=== PATIENT | female | born 1950 | race Caucasian/White ===

== ENCOUNTER 2019-02-15 13:14 | Emergency (ER) | payer MEDICARE, OTHER ==
[~2019-02-15] VITALS: Ht 165.1 cm; Wt 136.1 kg
[~2019-02-15 13:14] MED LIST: ABILIFY10 MG PO; AMBIEN10 MG PO; ASPIR 8181 MG PO; BUPRENORPHINE HC8 MG SL; CLONAZEPAM1 MG PO; DICLOFENAC SODI75 MG PO; LEVOTHYROXINE125 MCG PO; LEXAPRO20 MG PO; LIPITOR20 MG PO; METFORMIN HCL500 MG PO; NORCO 10-325 T1 EACH PO; NORVASC10 MG PO; OXYCONTIN20 MG PO; POTASSIUM CHLO10 MEQ PO; PYRIDIUM200 MG PO
--- OUTSIDE RECORDS SUMMARY | 2019-02-15 13:18 | XMS ---
PreManage Notification: TOR COTTER Security Logistics Intern Events No recent Security Events currently on file [facility] There are no care providers on record at this time. Kvng has no Care Guidelines for this patient. Kalyani VISIT COUNT (12 MO.) 1 CHITO Bell TOTAL 1 NOTE: Visits indicate total known visits. ED/C VISIT TRACKING (12 MO.) 02/15/2019 13:15 [facility]ITO Finch [place] TYPE: Emergency COMPLAINT: - HEEL PAIN, CANT WALK INPATIENT VISIT TRACKING (12 MO.) No inpatient visits to display in this time frame [id number]
[2019-02-15] MEDS ORDERED: LASIX40 MG PO (16:50)
[2019-02-15] MEDS ORDERED: K-TAB ER20 MEQ PO (16:50)
== END 2019-02-15 17:07 | disposition home or self-care (01) ==
LOC: ED 13:14
DX: M62.81 Muscle weakness (generalized) (principal); R60.0 Localized edema; I10 Essential (primary) hypertension; F32.9 Major depressive disorder, single episode, unspecified; F41.9 Anxiety disorder, unspecified; E03.9 Hypothyroidism, unspecified; Z87.891 Personal history of nicotine dependence; Z85.41 Personal history of malignant neoplasm of cervix uteri; Z88.0 Allergy status to penicillin; Z88.2 Allergy status to sulfonamides; Z88.5 Allergy status to narcotic agent; Z91.040 Latex allergy status; Z91.018 Allergy to other foods; Z88.8 Allergy status to other drugs, medicaments and biological substances; Z79.82 Long term (current) use of aspirin; Z79.899 Other long term (current) drug therapy
CPT/HCPCS: 36415; 80053; 84439; 84443; 85025; 99284

== ENCOUNTER 2019-04-03 09:44 | Inpatient (IN) | payer MEDICARE, OTHER ==
[~2019-04-03] VITALS: Ht 165.1 cm; Wt 112.8 kg
[~2019-04-03 09:44] MED LIST changes: +K-TAB ER20 MEQ PO; +LASIX40 MG PO
--- OUTSIDE RECORDS SUMMARY | 2019-04-03 09:48 | XMS ---
PreManage Notification: TOR COTTER Security Package Liner Events No recent Security Events currently on file CRITERIA MET - [facility] CARE PROVIDERS [facility] 02/15/2019-Current PHONE: [phone] Kvng has no Care Guidelines for this patient. Kalyani VISIT COUNT (12 MO.) 2 CHITO Bell TOTAL 2 NOTE: Visits indicate total known visits. ED/UCC VISIT TRACKING (12 MO.) 04/03/2019 09:45 [facility] [place] TYPE: Emergency COMPLAINT: - LEG NUMBNESS 02/15/2019 13:15 [facility]IT[facility] [place] TYPE: Emergency COMPLAINT: - HEEL PAIN, CANT WALK DIAGNOSES: - Allergy status to sulfonamides status - Anxiety disorder, unspecified - Essential (primary) hypertension - Allergy status to narcotic agent status - Allergy to other foods - Localized edema - Personal history of nicotine dependence - Major depressive disorder, single episode, unspecified - Latex allergy status - Hypothyroidism, unspecified - Allergy status to penicillin - Personal history of malignant neoplasm of cervix uteri - Muscle weakness (generalized) - intermodal dispatcher (current) use of aspirin - Allergy status to oth drug/meds/biol subst status - Other group home (current) drug therapy INPATIENT VISIT TRACKING (12 MO.) No inpatient visits to display in this time frame [id number]
[2019-04-03] MEDS ORDERED: ALDACTONE25 MG PO (10:02)
[2019-04-03] MEDS ORDERED: LASIX20 MG PO (10:02)
[2019-04-03] MEDS ORDERED: BUPRENORPHINE HC8 MG SL (10:02)
--- NOTE | 2019-04-03 13:15 | NUR ---
PT ARRIVED TO ROOM 110 ON ER GOURNEY AND WAS ASSISTED TO HOSPITAL BED WITH TWO PERSON TOTAL ASSIST WITH SLIDER TRANSFER SHEET. PRESSURE SORES TO COCCYX CLEANSED WITH NS AND PAT DRIED WITH FLUFF GUAZE AND FOAM DSGS APPLIED. PT TOLERATED WELL. PT ASSISTED TO POSITION OF COMFORT. POC DISCUSSED WITH PT AND FAMILY. ASSESSMENT COMPLETED AND AWAITING PHARMACY TO PROCESS NEW ORDERS PRIOR TO ADMINISTRATION. CALL LIGHT AND H2O IN REACH. NO FURTHER NEEDS OR CONCERNS VOICED.
--- NOTE | 2019-04-03 13:48 | NUR ---
CALL PLACED TO PHARMACY MEDS/FLUIDS UNAVAILABLE AT THIS TIME. SPOKE WITH CAMILO WHO INFORMED ME THAT ORDERS ARE CURRENTLY BEING PROCESSED BY PHARMACIST.
--- NOTE | 2019-04-03 14:20 | NUR ---
PT'S VOICED THAT HE WOULD LIKE TO DISCUSS POC WITH MD AND VOICED CONCERN STHAT PT HAD HEAD CT ORDERED WHEN SHE DID NOT HIT HER HEAD. PT'S REPORTS PT HAS HAD INCREASED CONFUSION AND FORGETFULNESS SINCE APRIL. DISCUSSED THESE CONCERNS/REQEUSTS WITH MD. HEAD CT ORDERED TO R/O TUMOR OR BRAIN BLEED AND MD UNABLE TO SEE PT'S FAMILY AT THIS TIME. POC DISCUSSED WITH PT AND HER AND RATIONAL FOR HEAD CT WAS DISCUSSED. .
--- NOTE | 2019-04-03 15:36 | NUR ---
Casas catheter placed maintaining sterile technique. 10 mls of normal saline used for balloon. Patient tolerated procedure well. 1000 mls of urine output initially.
--- NOTE | 2019-04-03 16:15 | NUR ---
PT RESTING SUPINE IN BED ALERT AND ORIENTED. CALL LIGHT AND FRESH H2O IN REACH. FAMILY AT BEDSIDE. NO NEEDS OR CONCERNS VOICED.
--- NOTE | 2019-04-03 17:25 | NUR ---
PT SITTING UP IN BED EATING DINNER WATCHING TV. PT ASSESSMENT COMPLETED. CALL LIGHT AND H2O IN REACH. NO NEEDS OR CONCERNS VOICED. PT APPEARS TO BE IN NO ACUTE DISTRESS. RR 16 EVEN AND UNLABORED ON RA.
--- NOTE | 2019-04-03 22:54 | NUR ---
PT ASSESSMENT COMPLETE. PT RATES PAIN 7/10 TO BUE AND R LEG. SCHEDULED PAIN MEDICATION ADMINISTERED. PT DENIES SOB OR NAUSEA. PT FORGETFUL DURING ASSESSMENT, ASKING SEVERAL TIMES ABOUT PAIN MEDCIATION ADMINISTRATION. REPEATING INFORMATION ABOUT HER SEVERAL TIMES. TELE IN PLACE, SR, HR 75. LYPHEDEMA PRESENT TO BLE'S, PT STATES THAT HER LEGS HAVE BEEN THIS WAY FOR A WHILE. SHE WAS SUPPOSED TO SEE HER PCP FOR LEG EDEMA ON THRUSDAY. CMS INTACT TO ALL EXTREMITIES. PT STATES SEVERAL TIMES THROUGHOUT ASSESSMENT, "I CANNOT SLEEP IN THE HOSPITAL". PT ASKS REAL ESTATE OFFICE MANAGER WHETHER SHE CAN HAVE AMBIEN. MEDCIATION EDUCATION ADMINISTERED. PT DENIES FURTHER NEEDS AT THIS TIME. CALL LIGHT WITHIN REACH. ROOM IN VIEW OF RN STATION.
--- NOTE | 2019-04-04 00:30 | NUR ---
PT RESTING IN BED WITH EYES CLOSED, WAKES WHEN IAIN ENTERS THE ROOM FOR IV PUMP ALARMING. PT STATES THAT SHE WILL PROBABLY STAY AWAKE A WHILE NOW BECAUSE THERE IS A MOVIE SHE WANTS TO WATCH ON TV. ICE WATER REFILLED. PT DENIES FURTHER NEEDS. CALL LIGHT IN REACH.
--- NOTE | 2019-04-04 02:47 | NUR ---
PT RESTING IN BED WITH EYES CLOSED. RESPIRATIONS EVEN AND UNALBORED. PT APPEARS TO BE SLEEPING. DOES NOT WAKE WHILE MECHANICAL SERVICE TECHNICIAN IN DOOR WAY. CALL LIGHT IN REACH.
--- NOTE | 2019-04-04 04:34 | NUR ---
PT ASSESSMENT COMPLETE. PT STATES THAT PAIN IS WELL CONTROLLED AT THIS TIME, RATES 1/10. PT DENIES SOB OR NAUSEA. ASSESSMENT UNCHANGED FROM PREVIOUS. UA SENT TO LAB. PT ENCOURAGED TO TAKE PO INTAKE. PT REPORTS THAT SHE DOES NOT LIKE TO DRINK WATER, REPORTS THAT SHE ONLY LIKES TO DRINK DIET COKE AND HOT TEA ON OCCASION. STATES THAT SHE LIMITS DIET COKE TO 1 PER DAY. EDUCATION REGARDING DEHYDRATION AND PO INTAKE PROVIDED. PT STATES UNDERSTANDING. DIET COLA PROVIDED. PT DENIES FURTHER NEEDS AT THIS TIME. CALL LIGHT IN REACH.
--- NOTE | 2019-04-04 05:01 | NUR ---
PT SLEPT WELL THIS SHIFT. TIMES OF FORGETFULNESS, A&O. TELE #7, SR. OLEA CATH DRAINING CLEAR YELLOW URINE, QS. ALLEVYN FOAM TO GLUTEAL FOLD. LYMPHEDEMA TO BLE'S. IVF INFUSING. 2PA WITH FWW. BUE PAIN, R LEG PAIN, WELL CONTROLLED WITH SCHEDULED NEBS.
--- NOTE | 2019-04-04 08:10 | NUR ---
BEDSIDE REPORT RECEIVED PT ALERT AND TALKATIVE. REFUSES UP TO CHAIR AT THIS TIME, BREAKFAST SERVED
--- NOTE | 2019-04-04 09:05 | NUR ---
SPOKE WITH PATIENT, HER AND HER BROTHER IN ROOM. PATIENT LIVES WITH IN HOUSE WITH 3 STEPS IN (NO STAIRS INSIDE). SHE SPENDS MOST OF HER TIME IN A RECLINER CHAIR. SHE SLEEPS THERE, ALSO. SHE HAS A WALKER. SHE IS ABLE TO DO SHORT DISTANCE ONLY. HER FIRST WISH IS TO GO HOME AT DISCHARGE. HER AND BROHTER BOTH DISAGREE WITH HER AND SPENT MUCH TIME DISCUSSING WHY SHE CANNOT GO HOME YET. THEY STATE THEY ARE UNABLE TO MOVE HER. STATES HE HAS A BAD BACK AND CAN'T HELP MOVE HER. THEY BOTH DID NOT KNOW SHE HAD SORE ON HER BOTTOM FROM SITTING IN THE CHAIR. DISCUSSED HOW SITTING AND FRICTION CAN CAUSE BREAKDOWN. DISCUSSED THAT SHE IS VERY WEAK AND DOCTOR RECOMMENDS HER TO GO TO NURSING HOME FACILITY SHE WILL MOST LIKELY NEED SEVERAL WEEKS TO MONTHS BEFORE SHE SHOULD RETURN HOME. AFTER SOME DISCUSSION ADN QUESTIONS ANSWERED, PATIENT AGREES TO DO THIS. THEY BOTH AGREE THAT THEY WANT HER TO STAY IN [place] SO CAN BE A PART OF HER DAILY PLAN THERE. DISCUSSED THAT [facility] IS ONLY OPTION IN [place]. DISCUSSED MEDICARE COVERAGE. ALL QUESTIONS ANSWERED. IT IS AGREED THAT I WILL SEND HER INFORMATION TO [facility] TODAY. WILL CONTINUE TO FOLLOW.
--- NOTE | 2019-04-04 11:09 | NUR ---
PATIENT JUST ABOUT TO WORK WITH SUSAN, PT. FAMILY IN ROOM. PATIENT STATES SHE DOESN'T LIKE THE FOOD HERE. ENCOURAGED HER TO TRY SOME OTHER THINGS ON THE MENU SINCE SHE WAS ADMITTED LAST NIGHT AND HAS ONLY HAD 2 MEALS SO FAR. ALSO MENTIONED TO HER THAT WE HAVE ENSURE FOR HER TO DRINK IF SHE DOES NOT WANT A MEAL. SHE IS ON A 2 GRAM SODIUM DIET. PT IN TO WORK WITH PATIENT. NOTED PATIENT HAS A BANANA ALLERGY. WILL CONTINUE TO MONITOR.
--- NOTE | 2019-04-04 11:14 | NUR ---
DR BENSON IN TO SEE PT, IS PRESENT. DR XIONG REPORTS PT WAITING FOR HER MORNING MEDS. REMINDED PT AND THEY WERE GIVEN AND SO WAS FLU SHOT, IV LASIX, PAPERWORK FOR FLU SHOT, ETC. BOTH APPEAR TO HAVE POOR SHORT TERM MEMORY. BETH WALKER MEETS WITH PT AND . VISITORS PRESENT X2 AT THIS TIME.
--- NOTE | 2019-04-04 11:27 | NUR ---
PT SIT TO STAND WITH PHYSICAL THERAPY, PT REPORTS RIGHT SHOULDER HURTING CREPITUS NOTED, NOTIFIED.
--- NOTE | 2019-04-04 11:28 | NUR ---
P/T IN TO WORK WITH PT SHE RETURNS TO BED AFTER THAT
--- NOTE | 2019-04-04 13:57 | NUR ---
PT WAS ABLE TO STAND FOR P/T BUT UNABLE TO TAKE ANY STEPS. CONTINUES IN THE ROOM, SEVERAL VISITORS HAVE BEEN IN AND OUT. PT RESTING IN BED EYES CLOSED AFTER COMPLETING NOON MEAL
--- NOTE | 2019-04-04 15:14 | NUR ---
PT REQUEST PAIN MEDICATIONS, DISCUSSED WITH , DUE TYLENOL NOT AVAILABLE UNITL 1600. MD SAID NO MOTRIN DUE TO EUNICE, DISCUSSED WITH PT SHE SAID SHE WILL BE OK UNTIL 1600. ALSO PT REQUEST A DIET SODA THIS WAS PROVIDED THEN PT CONSUMED 50ML BEFORE PRIMARY RN VERBALIZED SHE CAN NOT HAVE SODA DUE TO SODIUM RESTICTION. SODA REMOVED FROM ROOM. EDUCATION PROVIDED AND PT COMPLIANT.
--- NOTE | 2019-04-04 15:58 | NUR ---
PT IS REFERRED BY DR. DIAZ FOR WOUND CONSULT OF THE RIGHT AND LEFT BUTTOCK/GLUTEAL FOLD. PT HAS SEVERAL PRESSURE INJURIES, ALL A STAGE 2 WITH SOME DEEP TISSUE INJURY IN THE SURROUNDING AREA. PT REPORTS THAT SHE OBTAINED THESE INJURIES AFTER A FALL AT HOME. THE LEFT BUTTOCK HAS A SUPERIOR AND INFERIOR INJURY MEASURING 6.6CM X 1.2CM X 0.1CM AND 2.9CM X 2.4CM X 0.1CM. THE RIGHT BUTTOCK HAS SUPERIOR, MEDIAL, AND INFERIOR INJURIES MEASURING 1.1CM X 0.6CM X 0.1CM; 5CM X 2.4CM X 0.1CM; AND 4.7CM X 2.3CM X 0.1CM. THE BASES OF ALL PRESSURE INJURIES ARE PALE PINK/RED GRANULATING TISSUE. THE EDGES ARE INTACT, PROLIFERATIVE, NO UNDERMINDING OR TUNNELING NOTED. THERE IS A SMALL AMOUNT OF YELLOW, SEROSANGUINOUS EXUDATE. THERE IS NO SIGN OF INFECTION, THE AREA IS WARM TO THE TOUCH, BUT THE PT IS OBESE AND HER BODY IS PUTTING OFF HEAT. THE PERIWOUND WOUND SKIN HAS AREAS OF SUSPECTED DEEP TISSUE INJURY, BUT IS OTHERWISE RED/ERYTHEMATOUS AND INTACT. PT REPORTS PAIN 5 OR 6 OUT OF 10 PRIOR TO BEGINNING WITH CLEANSING THE AREA, REPORTING INCREASED PAIN WITH CLEANSING OF THE AREA. CARE PLAN: 1. CLEANSE WITH ROOM TEMP WATER AND GAUZE; PAT DRY 2. APPLY SKIN PREP TO PERIWOUND SKIN 3. USING A SACRAL FOAM DRESSING, APPLY MEDIHONEY TO THE FOAM AND APPLY TO PT'S SKIN 4. CHANGE EVERY 3 TO 4 DAYS OR PRN
[2019-04-04] MEDS ORDERED: NORVASC10 MG PO (16:05)
[2019-04-04] MEDS ORDERED: LEVOTHYROXINE175 MCG PO (16:06)
--- NOTE | 2019-04-04 17:30 | NUR ---
MED REC COMPLETE
--- NOTE | 2019-04-04 18:03 | NUR ---
PATIENRT IN BED, NEEDS NO OTHER ASSISTANCE
--- NOTE | 2019-04-04 18:09 | NUR ---
PT RESTING IN BED EATS MOST OF EVENING MEAL VISITS READILY WITH NO C/O PAIN OR NEEDS. CONTINUES TO ORDER DIET PEPSI, DISCUSSED SODIUM CONTENT WITH THIS PT AND REASON DOESN'T WANT HER DRINKING IT. REMINDER WRITTEN ON BOARD FOR HER SHE STATES SHE CAN'T REMEMBER.
--- NOTE | 2019-04-04 21:17 | NUR ---
PT ASSESSMENT COMPLETE. PT STATES THAT PAIN IS TOLERABLE, DENIES NAUSEA OR SOB AT THIS TIME. TELE # 7N IN PLACE, SR, HR 71. OLEA CATH DRAINING CLEAR YELLOW URINE. LYMPHEDEMA TO BLE'S. SOCKS REMOVED AND LEFT OFF PER PT'S REQUEST, SHE THINKS PERHAPS SOCKS HAVE MADE HER FEET SORE. IVF INFUSING WNL. PT'S STUFFED ANIMAL PLACED IN THE CLOSET PER HER REQUEST. PT STATES "I'M REALLY NOT A STUFFED ANIMAL PERSON". PT FORGETFUL DURING ASSESSMENT, FORGETS THAT E COMMERCE PROJECT MANAGER IS HER NURSE AFTER INTRODUCTIONS, AND STATES THAT SHE HAS NOT EATEN TODAY DESPITE HAVING EATEN 3 MEALS. PT LAUGHS, STATES "I FORGET SOMETIMES." PT DENIES FURTHER NEEDS AT THIS TIME. CALL LIGHT WITHIN REACH.
--- NOTE | 2019-04-04 23:11 | NUR ---
PT RESTING IN BED WITH EYES CLOSED. RESPIRATIONS EVEN AND UNLABORED. PT APPEARS TO BE SLEEPING. CALL LIGHT IN REACH. ROOM IN VIEW OF RN STATION.
--- NOTE | 2019-04-05 01:18 | NUR ---
PT RESTING IN BED WITH EYES CLOSED. RESPIRATIONS EVEN AND UNLABORED. PT APPEARS TO BE SLEEPING. CALL LIGHT IN REACH. ROOM IN VIEW OF RN STATION.
--- NOTE | 2019-04-05 03:25 | NUR ---
PT RESTING IN BED WITH EYES CLOSED. RESPIRATIONS EVEN AND UNLABORED. PT APPEARS TO BE SLEEPING, DOES NOT WAKE WHILE RESEARCH CLERK IN DOORWAY. CALL LIGHT IN REACH.
--- NOTE | 2019-04-05 05:15 | NUR ---
PT RESTING IN BED WITH EYES CLOSED. DOES NOT WAKE WHILE STRATEGIC MARKETING MANAGER IN DOORWAY. PT APPEARS TO BE SLEEPING. CALL LIGHT IN REACH. ROOM IN VIEW OF RN STATION.
--- NOTE | 2019-04-05 06:37 | NUR ---
PT ASSESSMENT COMPLETE. PT STATES THAT PAIN IS WELL CONTROLLED, DENIES NAUSEA OR SOB. PT FORGETFUL DURING ASSESSMENT, ASKS THE SAME QUESTIONS REGARDING MEDICATIONS REPEATEDLY. REPORT FROM WET MACHINE CUTTER THAT PT HAS LOW GRADE TEMP. IS ENCOURAGED. PT DEMONSTRATES APPROPRIATE IS USE X 15. OLEA CATH DRAINING CLEAR YELLOW URINE. ASSESSMENT OTHERWISE UNCHANGED. PT DENIES FURTHER NEEDS AT THIS TIME. CALL LIGHT IN REACH.
--- NOTE | 2019-04-05 07:10 | NUR ---
BEDSIDE HANDOFF REPORT RECEIVED FROM FILLER BLOCK INSERTER REMOVER RN. PT RESTING IN BED. IV FLUIDS INFUSING AT 100ML/HR. PT DENIES NEEDS AT THIS TIME.
--- NOTE | 2019-04-05 09:15 | NUR ---
PT RESTING IN BED, PT HAS NOT RECEIVED BREAKFAST, ASSISTED TO ORDER BREAKFAST. PT RATIN GPAIN MINIMAL 06/06, GIVEN SCHEDULED MEDICATIONS. PT ON ROOM AIR, LUNG SOUNDS CLEAR. BOWEL TONES ACTIVE, DENIES NAUSEA. IV FLUIDS INFUSING D5 1/2 NS +20 MEQ, KCL RIDER INFUSING. OLEA CATH DRAINING YELLOW URINE. PT WITH LYMPHEDEMA TO BLE, CMS INTACT. DISCUSSED PLAN OF CARE FOR THE DAY.
--- NOTE | 2019-04-05 10:20 | NUR ---
PATIENT SITTING UP IN BED. IN ROOM. VITAL SIGNS AND I&O DONE. ICE WATER GIVEN. CALL LIGHT WITHIN REACH. NO OTHER NEEDS AT THIS TIME
--- NOTE | 2019-04-05 11:02 | NUR ---
PT SALINE LOCKED FOR P.T.
--- NOTE | 2019-04-05 11:21 | NUR ---
PATIENT RESTING IN BED. PHYSICAL THERAPIST IN ROOM. PATIENT STANDS UP. PATIENT USES WALKER. THREE PERSON ASSISTING. LINENS CHANGED. PATIENT BACKS TO BED. GOWN CHANGED. CALL LIGHT WITHIN REACH. NO OTHER NEEDS AT THIS TIME
--- NOTE | 2019-04-05 11:50 | NUR ---
FAXED CLINICALS TO [facility] FOR POSSIBLE ADMISSION. FAX CONFIRMATION RECEIVED 04/05/19 1145AM.
--- NOTE | 2019-04-05 11:57 | NUR ---
IV FLUIDS RESUMED, KCL INFUSING. PT REPOSITIONED IN BED. PT ASKING FOR SALT FOR HER LUNCH, OFFERED MRS. AVERY BUT PT STATES SHE DOES NOT LIKE IT, UNABLE TO PROVIDE SALT DUE TO SODIUM RESTRICTION. PT UNDERSTANDS. PT DENIES OTHER NEEDS AT THIS TIME.
--- NOTE | 2019-04-05 13:48 | NUR ---
PT RESTING IN BED NO REPORT OF PAIN OR NAUSEA. SPOUSE AT BEDSIDE AT THIS TIME
--- NOTE | 2019-04-05 14:41 | NUR ---
PT ALERT, ORIENTED AND SUPPORTED BY HER AT . SHE WAS PLEASED THAT I CAME BY-INVITED ME TO SIT DOWN. PT BEGAN TO SHARE WITH ME WHAT BROUGHT HER TO [facility] [address] NOW AND HER FILLED IN WHAT PT COULD NOT REMEMBER. PT ADMITTED THAT SHE HAS HAD A SERIES OF SMALL STROKES THAT HAS LIMITED HER ABILITY TO REMEMBER SIMPLE THINGS. PT MENTIONED THAT SHE IS TO GO TO [facility]. ENCOURAGED HER TO VIEW IT A TOOL TO HELP HER ACCOMPLISH THE TASK OF RETURNING HOME. PT REQUESTED PRAYER, WILL FOLLOW NEEDED
--- NOTE | 2019-04-05 15:19 | NUR ---
In to speak with pt and her spouse. Pt states "They're sending me to a assisted". Spouse reminds pt she agreed yesterday and [facility] is 1 minute away from their home. Pt agrees to go but wants to go in a gown, told her this is fine. Asked if spouse can bring her coat, slippers, and stretch pants. He agrees. Awaiting confirmation from [facility] for room.
--- NOTE | 2019-04-05 16:13 | NUR ---
PT EYAL LIFTED TO SHOWER CHAIR, SHOWER COMPLETED. LOWER LEGS CLEANSED WITH SURGICAL SPONGE. PT EYAL LIFTED BACK TO BED. SKIN FOLDS ASSESSED, NIO ORDER FOR GROIN AND PANNUS. SKIN FOLDS BETWEEN TOES AND ON BLE CLEANSED WITH WOUND CLEANSER. SMALL OPEN WOUND TO RIGHT LATERAL CALF. SAT INSTRUCTOR TO BEDSIDE TO ASSESS BLE LYMPHEDEMA WOUNDS.
--- NOTE | 2019-04-05 16:30 | NUR ---
DURING REVIEW OF PT CHART IS WAS NOTED THAT PT HAD LATEX ALLERGY AND HAS RUBBER CATHETER IN PLACE, NO S/S OF LOCAL REACTION PRESENT. MD NOTIFIED, ORDERED TO REPLACE WITH LATEX FREE CATHETER.
--- NOTE | 2019-04-05 17:15 | NUR ---
Notified pt and spouse, [facility] does not have a bed open until . Understanding stated. Spouse brought in sweat pants, coat, and slippers for pt. Slippers a ex large and do not fit her feet. Suggested he split the top of the slippers. Heather from the wound care team working with pt.s dried skin on lower legs.
--- NOTE | 2019-04-05 17:44 | NUR ---
LE 1615: PT IS SEEN FOR EVALUATION OF ANKLE BRACHIAL INDEX TO SEE IF SHE IS A CANDIDATE FOR COMPRESSION THERAPY. THERE IS NO MEDICAL HX OF ARTERIAL DISEASE ACCORDING THE PT AND HER CHART. UPON COMPLETION OF THE ALEXIS THE RIGHT ALEXIS IS 1.3 AND THE LEFT IOS 1.46. WHILE THE RIGHT IS AT THE EXTREME NORMAL LIMIT IT IS NOT RECOMMENDED TO COMPRESS AT THIS TIME. THE LEFT IS NOT A CANDIDATE FOR COMPRESSION THERAPY SINCE THE RESULTS INDICATE PROBABLE ARTERIAL INSUFFICIENCY. THESE RESULS ARE DISCUSSED WITH GALLO ARGUELLO AND THE PT'S . THE PT IS EDUCATED TO KEEP HER LE ELEVATED AT LEAST 30 MINUTES EVERYDAY. CARE ORDERS FOR LE'S: 1. CLEANSE WITH WOUND CLEANSER OR WARM WATER 2. PAT DRY 3. APPLY MEDIHONEY TO ANY CRUSTED AREAS 4. APPLY BARRIER CREAM TO REMAING SKIN 5. GENTLY/LOOSELY APPLY ROLLED GAUZE OR CAST PADDING TO AFFECTED AREAS 6. VERY LOOSELY ROLL COBAN AROUND EXTREMITY TO HOLD THE ROLLED GAUZE OR CAST PADDING IN PLACE. 7. CHANGE Q3-4 DAYS OR PRN
--- NOTE | 2019-04-05 18:15 | NUR ---
OLEA CATH CHANGED TO LATEX FREE CATHETER. WOUND TO BUTTOCK DRESSED PER WOUND CARE ORDERS. PT SITTING IN BED EATING DINNER. PT DENIES OTHER NEEDS AT THIS TIME.
--- NOTE | 2019-04-05 20:00 | NUR ---
PATIENT RESTING WATCHING TVNO NEEDS AT THIS TIME. CALL LIGHT IN REACH.
--- NOTE | 2019-04-05 21:40 | NUR ---
PATIENT HAS HAD EVENING MEDS AND BEEN TURNED TO RIGHT SIDE. WATER GLASS FILLED. HAVING NO PAIN. LOW GRADE FEVER 99.5F SO TYLENOL GIVEN. PATIENT CONTINUES TO WATCH TV. NO OTHER NEEDS. CALL LIGHT IN REACH.
--- NOTE | 2019-04-05 23:51 | NUR ---
PATIENT RESTING QUIETLY, RESPIRATIONS REGULAR AND EVEN, CALL LIGHT IN REACH.
--- NOTE | 2019-04-06 01:01 | NUR ---
PATIENT RESTING QUIETLY SUPINE, RESPIRATIONS REGULAR AND EVEN, EYES CLOSED AND CALL LIGHT IN REACH.
--- NOTE | 2019-04-06 03:10 | NUR ---
PATIENT HAS BEEN RESTING QUIETLY, EYES CLOSED, RESPIRATIONS ARE REGULAR AND EVEN, CALL LIGHT IS IN REACH. PATIENT VISIBLE FROM NURSES STATION.
--- NOTE | 2019-04-06 05:22 | NUR ---
PATIENT RESTED WELL MOST OF THE NIGHT, NO C/O ANYTHING THROUGH THE NIGHT. PATIENT RESTED WELL MOST OF THE NIGHT EYES CLOSED RESPIRATIONS REGULAR AND EVEN AND CALL LIGHT IN REACH. IV INFUSING AND OLEA DRAINING WELL.
--- NOTE | 2019-04-06 06:55 | NUR ---
BEDSIDE HANDOFF REPORT RECEIVED FROM ACTIVATED SLUDGE ATTENDANT RN. PT SLEEPING, LEFT UNDISTURBED.
--- NOTE | 2019-04-06 08:08 | NUR ---
PATIENT RESTING IN BED. PATIENT'S HANDS AND FACE CLEANED. PATIENT TRANSFERRED TO THE CHAIR. PATIENT USES EYAL. THREE PERSON ASSISTING. LINENS CHANGED. SETS UP TABLE FOR BREAKFAST. ICE WATER GIVEN. TISSUES PROVIDED.CALL LIGHT WITHIN REACH. NO OTHER NEEDS AT THIS TIME
--- NOTE | 2019-04-06 08:15 | NUR ---
PT EYAL LIFTED TO CHIAR FOR BREAKFAST. PT DENIES OTHER NEEDS AT THIS TIME.
--- NOTE | 2019-04-06 09:15 | NUR ---
PT SITTING IN THE CHAIR, DONE WITH BREAKFAST. PT ON ROOM AIR, LUNG SOUNDS CLEAR. BOWEL TONES ACTIVE, DENIES NAUSEA. IV SALINE LOCKED PER ORDER, IV FLUSHED AND PATENT. PT RATING CHRONIC PAIN 2/10 AT THIS TIME, GIVEN SCHEDULED MEDICATIONS. PT WITH BLE DRESSINGS, CMS INTACT, PULSES PALPABLE. DISCUSSED PLAN OF CARE FOR THE DAY. PT VOICING ANXIETY ABOUT GOING TO SNF TOMORROW, DISCUSSED WITH PT AND SPOUSE.
--- NOTE | 2019-04-06 10:04 | NUR ---
PATIENT SITTING UP IN CHAIR. IN ROOM. VITAL SIGNS AND I&O DONE. CALL LIGHT WITHIN REACH. NO OTHER NEEDS AT THIS TIME
--- NOTE | 2019-04-06 12:29 | NUR ---
PT SITTING CHAIR, DEBORAH AT HER SIDE. PT STILL STRUGGLING WITH GOING TO [facility]. REMINDED HER TO CONSIDER IT A TOOL TO HELP HER ACCOMPLISH THE TASK OF RETURNING HOME. GAVE ENCOURAGEMENT A VISITOR CAME IN. WILL FOLLOW NEEDED
--- NOTE | 2019-04-06 14:06 | NUR ---
PATIENT SITTING UP IN CHAIR. VITAL SIGNS AND I&O DONE. CALL LIGHT WITHIN REACH. NO OTHER NEEDS AT THIS TIME
--- NOTE | 2019-04-06 14:27 | NUR ---
In to speak with pt. Dr. Lay is in the room and answering questions regarding dementia. Spouse has many questions about length of time pt has and when she will start forgetting more information. suggested he contact a snaker for legal issues. Pt has forgotten myself and Dr. Lay saw her yesterday. Updated she will go to the assisted [facility] tommorrow.
--- NOTE | 2019-04-06 15:42 | NUR ---
PT EYAL LIFTED TO [facility], ABLE TO HAVE LARGE BM. PT ASSISTED BACK TO BED. BUTTOCK DRESSING PEELING OFF, WOUND CLEANSED AND DRESSING REPLACED PER ORDER. PT DENIES OTHER NEEDS AT THIS TIME.
--- NOTE | 2019-04-06 18:01 | NUR ---
PATIENT SITTING UP IN BED. VITAL SIGNS AND I&O DONE. CALL LIGHT WITHIN REACH. NO OTHER NEEDS AT THIS TIME
--- NOTE | 2019-04-06 18:49 | NUR ---
PT EYAL LIFTED TO CHAIR, SAT IN CHAIR FOR MAJORITY OF MORNING. PT ON ROOM AIR, LUNG SOUNDS CLEAR. IV SALINE LOCKED. PT TOELRATING 2G NA DIET, HAD BM TODAY. OLEA CATH WITH URINE QS. DRESSING TO BUTTOCK CHANGED PRN.
--- NOTE | 2019-04-06 19:38 | NUR ---
PATIENT RESTING IN BED SEMI-FOWLERS WATCHING TV, PATIENT GIVEN NEW GLASS OF ICE WATER. PATIENT HAD NO OTHER NEEDS. CALL LIGHT IN REACH.
--- NOTE | 2019-04-06 20:04 | NUR ---
PT WATCHING TV. PT HAS NO NEEDS AT THIS TIME.
--- NOTE | 2019-04-06 20:18 | NUR ---
ROUNDED CHARGE. PATIENT COMPLETING PM CARE WITH CLARA CHUNG. PATIENT DENIES ANY COMMENTS, QUESTIONS OR CONCERNS. CALL LIGHT IN REACH.
--- NOTE | 2019-04-06 21:40 | NUR ---
PATIENT JUST WANTED HER EVENING MEDS AND THEY WERE GIVEN, PATIENT HAVING NO PAIN AND GIVEN NEW ICE WATER. PATIENT WATCHING TV AND CALL LIGHT IS IN REACH.
--- NOTE | 2019-04-06 23:01 | NUR ---
PATIENT SETTING IN HIGH FOWLERS POSITION, RESPIRATIONS REGULAR AND EVEN, EYES CLOSED, LIGHTS AND TV ON. CALL LIGHT IN REACH. WATER IN REACH. OLEA DRAINING WELL.
--- NOTE | 2019-04-07 01:28 | NUR ---
PATIENT RESTING QUIETLY IN BED IN HIGH FOWLERS POSITION, RESPIRATONS REGULAR AND EVEN, OLEA DRAINING, EYES CLOSED, PATIENT CAN BE OBSERVED FROM THE DESK. CALL LIGHT IN REACH.
--- NOTE | 2019-04-07 03:00 | NUR ---
PATIENT IS STILL RESTING IN BED IN HIGH FOWLERS POSITION, EYES CLOSED, RESPIRATIONS REGULAR AND EVEN, WATER IN REACH, AND CALL LIGHT IN REACH.
--- NOTE | 2019-04-07 05:00 | NUR ---
PATIENT STILL RESTING QUIETLY, EYES CLOSED, REPIRATIONS REGULAR AND EVEN WITH CALL LIGHT IN REACH.
--- NOTE | 2019-04-07 06:08 | NUR ---
PATIENT SLEPT WELL MOST OF THE NIGHT. HAS HAD NO PAIN, TOOK HER AM MEDS. OLEA HAS JAZMINE DRAINING WELL AND IV FLUSHES WELL. PATIENT NOW AWAKE WATCHING TV. CALL LIGHT IN REACH.
--- NOTE | 2019-04-07 07:14 | NUR ---
PT RESTING SUPINE IN BED ALERT AND ORIENTED CALL LIGHT AND H2O IN REACH. NO NEEDS OR CONCERNS VOICED. BEDSIDE REPORT RECEIVED FROM SAUNDRA OLSON.
[2019-04-07] MEDS ORDERED: ZOLPIDEM TARTRAT5 MG PO (08:59)
[2019-04-07] MEDS ORDERED: CEPHALEXIN500 MG PO (08:59)
[2019-04-07] MEDS ORDERED: LEVOTHYROXINE150 MCG PO (09:00)
[2019-04-07] MEDS ORDERED: NYSTOP60 GM TOP (09:00)
--- NOTE | 2019-04-07 09:00 | NUR ---
MDT Unable to document in MDT Interventions. Pt discussed 0830 MDT meeting. Pt will go to [facility] today. [facility] with transport.
[2019-04-07] MEDS ORDERED: BUPRENORPHINE HC8 MG SL (09:01)
[2019-04-07] MEDS ORDERED: ASPIR-LOW81 MG PO (09:56)
[2019-04-07] MEDS ORDERED: NORVASC10 MG PO (09:56)
[2019-04-07] MEDS ORDERED: CLONAZEPAM1 MG PO (12:57)
--- NOTE | 2019-04-07 13:16 | NUR ---
BEFORE I WENT TO [facility] NURSE HELPED ME PUT ON HER PAJAMA BOTTOMS AND HER SWEAT SHIRT. ALSO I SHAMPOOED HER HAIR AND PUT IT UP IN A PONY TAIL.
== END 2019-04-07 13:12 | DRG 641 ==
LOC: ED 09:44 → MS 09:46
PROVIDERS: ADMIT Internal Medicine
DX: E87.6 Hypokalemia (principal); N17.9 Acute kidney failure, unspecified; N30.10 Interstitial cystitis (chronic) without hematuria; B96.1 Klebsiella pneumoniae [K. pneumoniae] as the cause of diseases classified elsewhere; I89.0 Lymphedema, not elsewhere classified; E03.9 Hypothyroidism, unspecified; I10 Essential (primary) hypertension; F41.8 Other specified anxiety disorders; G89.4 Chronic pain syndrome; B35.4 Tinea corporis; R41.3 Other amnesia; Z23 Encounter for immunization; S31.809A Unspecified open wound of unspecified buttock, initial encounter; Z85.41 Personal history of malignant neoplasm of cervix uteri; Z87.891 Personal history of nicotine dependence; Z79.899 Other long term (current) drug therapy; Z66 Do not resuscitate; Z88.5 Allergy status to narcotic agent; Z88.0 Allergy status to penicillin; Z88.2 Allergy status to sulfonamides; Z88.8 Allergy status to other drugs, medicaments and biological substances; Z88.1 Allergy status to other antibiotic agents; Z91.040 Latex allergy status
CPT/HCPCS: 36415; 70450; 80048; 80053; 81001; 83735; 83880; 84100; 84443; 85025; 87077; 87088; 87186; 90662; 96360; 96361; 97110; 97162; 97167; 97530; 97535; 99291; A9270; J1650; J1940; J3480; J7030; J7060

== ENCOUNTER 2019-07-30 13:12 | Emergency (ER) | payer MEDICARE, OTHER ==
[~2019-07-30] VITALS: Ht 165.1 cm; Wt 112.8 kg
[~2019-07-30 13:12] MED LIST changes: +ALDACTONE25 MG PO; +ASPIR-LOW81 MG PO; +CEPHALEXIN500 MG PO; +LASIX20 MG PO; +LEVOTHYROXINE150 MCG PO; +LEVOTHYROXINE175 MCG PO; +NYSTOP60 GM TOP; +ZOLPIDEM TARTRAT5 MG PO
--- OUTSIDE RECORDS SUMMARY | 2019-07-30 13:16 | XMS ---
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 Kalyani VISIT COUNT (12 MO.) 3 [facility] TOTAL 3 NOTE: Visits indicate total known visits. 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 TYPE: Medical Surgical COMPLAINT: - EUNICE, HYPOKALEMIA, FALL DIAGNOSES: - Other specified anxiety disorders - Hypothyroidism, unspecified - Allergy status to narcotic agent status - Other amnesia - Encounter for immunization - Allergy status to other antibiotic agents status - Essential (primary) hypertension - Personal history of nicotine dependence - Tinea corporis - Allergy status to sulfonamides status - Klebsiella pneumoniae [K. 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 - Essential (primary) hypertension - Hypokalemia - Allergy status to sulfonamides status - Allergy status to narcotic agent status - Lymphedema, not elsewhere classified - Personal history of malignant neoplasm of cervix uteri - Unspecified open wound of unspecified buttock, initial encoun - Personal history of malignant neoplasm of cervix uteri - Lymphedema, not elsewhere classified - Chronic pain syndrome - Hypothyroidism, unspecified - Interstitial cystitis (chronic) without hematuria - Chronic pain syndrome - Allergy status to other antibiotic agents status - Other amnesia - Allergy status to other drugs, medicaments and biological sub - Unspecified open wound of unspecified buttock, initial encoun - Allergy status to penicillin - Pressure ulcer of left buttock, stage 2 - Other specified anxiety disorders - Encounter for immunization - Acute kidney failure, unspecified - Other halfway (current) drug therapy - Do not resuscitate - Latex allergy status - Pressure ulcer of right buttock, stage 2 - Allergy status to penicillin - Allergy status to other drugs, medicaments and biological sub - Klebsiella pneumoniae [K. pneumoniae] as the cause of disease - Acute kidney failure, unspecified - Do not resuscitate - Tinea corporis - Latex allergy status - Interstitial cystitis (chronic) without hematuria - Personal history of nicotine dependence [email or web address]
--- NOTE | 2019-07-30 13:46 | NUR ---
Received call from Ulises in the ER. He is requesting CM assistance for this pt in ER. [facility] brought her in by EMS stating he is unable to care for her. She was in [facility] 2 weeks ago and he would like her to return. Informed I will attempt to call [facility] and see if she can return. Called and spoke and airline lounge receptionist at [facility] she states pt was there, but they cannot take patients. Called and spoke with Naa Townsend, at [facility] in [place]. They are on a hold by the [facility]. Called and spoke with [facility]. They are also on hold to take pts.
[2019-07-30] MEDS ORDERED: LEXAPRO20 MG PO (14:09)
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
--- NOTE | 2019-07-30 16:19 | NUR ---
Called and spoke with pt's spouse, Lon. He states pt spent 100 days at [facility] and was sent home when days were met. She was unable to walk on return. She spends all of her time in a recliner. He is unable to lift her. Suggested he obtain a commode and assister her to transfer to commode as she can pivot and take a few steps. is seeing her and was in today. He agreed to Plan: 1. Get a commode 2. Hire a caregiver 3. Call and ask for instructions to move and care for pt. 4. He will call Dr. Portillo on Thursday and request assistance. I will call vocational aide nurse and update. I will ask if they can provide educaiton this weekend.
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
== END 2019-07-30 17:50 | disposition home or self-care (01) ==
LOC: ED 13:12
DX: L08.9 Local infection of the skin and subcutaneous tissue, unspecified (principal); L89.321 Pressure ulcer of left buttock, stage 1; L89.311 Pressure ulcer of right buttock, stage 1; I10 Essential (primary) hypertension; E03.9 Hypothyroidism, unspecified; Z87.891 Personal history of nicotine dependence
CPT/HCPCS: 51702; 81001; 99283-25